=== PATIENT | female | born 1965 | race Caucasian/White ===

== ENCOUNTER → 2017-09-11 | Outpatient (CLI) | payer OTHER ==
[~2017-09-11] MED LIST: DOXY-300 PO
--- NOTE | 2017-09-11 13:53 | Discharge Instructions ---
Discharge Instructions Procedure Procedure Date: September 11, 2017. Reason for visit: Left Calcs; Us Bx R Mass. Discharge Discharge Date: September 11, 2017. Discharge Diagnosis: post right breast ultrasound guided core biopsy and left breast stereotactic guided core biopsy Instructions Activity Recommendations: Additional Limitations (see below) Return to School/Work: no limitations Recommended Home Diet: No Limitations Provider Instructions: ACTIVITY RECOMMENDATIONS: * No lifting, pushing, pulling or exercising the affected side for three days. RETURN TO SCHOOL/WORK: * You may return to work/school after the procedure, but do not perform any strenuous activities for 24 to 48 hours. MEDICATIONS: * Tylenol (two 325 mg) every four to six hours if needed for mild pain (if not allergic to Tylenol). DIET: * Resume previous diet. SPECIAL CARE INSTRUCTIONS: * Keep biopsy site dry for 24 hours. May shower after 24 hours, but do not soak (bathe) incision. * May remove Tegaderm (plastic patch) tomorrow AFTER showering. * Leave the steri-strips on for one week. Allow the steri-strips to fall off by themselves. If not off after one week, you may remove them. You may place a Bandaid crosswise over the strips, if desired. * Apply ice 10 minutes on and 10 minutes off as needed. * Wear a bra at bedtime to sleep more comfortably for 2-3 days. * Your referring physician should have the results after approximately 5 to 7 business days. * Call for unusual bleeding, fever, drainage, etc or if you have any questions call [phone] during normal business hours or after hours call Dr Dominguez, . FOLLOW UP VISIT: Follow-up with Referring Physician as scheduled. Allergies Coded Allergies: Erythromycin (Verified Allergy, Unknown, ., 12/06/15) Macrolides (Verified Allergy, Unknown, 12/06/15) Penicillins (Verified Allergy, Unknown, 12/06/15) Jhonny Francisco Recommendations: Call your doctor if: * Temperature above 101 degrees * Pain not relieved by pain medicine ordered * There is increased drainage or redness from any incision * You have any unanswered questions or concerns. Your Doctors Instructions noted above were prepared by provider Lissa Dominguez. Patient Signature Section: Patient Instructions Signature Page Mary Ann Baxter Patient (or Guardian) Signature/Date: I have read and understand the instructions given to me by my caregivers. Caregiver/RN/Doctor Signature/Date: The above-named patient and/or guardian has received patient instructions on this date. + Original Patient Signature Page (only) stays with chart. Please make copy for patient.
--- NOTE | 2017-09-11 15:44 | MAMMOGRAPHY REPORT ---
ULTRASOUND GUIDED BIOPSY RIGHT BREAST: 09/11/2017 CLINICAL HISTORY: 10 mm mass with associated calcification in the 12:00 anterior right breast. Patie nt presents for ultrasound-guided core biopsy. During the same appointment a stereotactic guided bio psy was performed in the left upper outer quadrant of a 6 mm cluster of indeterminate microcalcificat ions. COMPARISON: Comparison is made to exams dated: 08/23/2017 mammogram and 08/23/2017 ultrasound - [facility]. PATIENT CONSENT: The procedure, risks and benefits were discussed with the patient and informed conse nt was obtained both verbally and in writing. Specific risks to this procedure include: bleeding, in fection, puncture of adjacent structure, nontarget biopsy, sampling error, pain, metal allergy and me dication reaction. PROCEDURE DESCRIPTION: A time out was performed and the right breast was agreed as the site of biopsy . The skin was prepped and draped in the usual sterile fashion. The solid 10 mm mass in the 12:00 per iareolar right breast was chosen as the target for biopsy. Subcutaneous and intraparenchymal 1% buffe red lidocaine, with and without epinephrine, was administered as local anesthesia. A skin incision wa s made. Through the incision, 4 samples were taken with a 14 gauge Achieve biopsy device. A ribbon s haped metallic marker was placed at the biopsy site. Hemostasis was achieved after manual compression . The patient tolerated the procedure well and there was no immediate complication. The samples were sent to the pathology department in an appropriately labeled container. Postprocedure right CC and ML tomosynthesis images were obtained. A ribbon-shaped biopsy marker clip is identified in the 12:00 anterior right breast within a partially circumscribed and obscured mammo graphic mass containing a loose grouping of punctate calcifications. No significant postbiopsy hemat mohamud identified. IMPRESSION: ULTRASOUND GUIDED BIOPSY 1. Status post ultrasound-guided core biopsy of an indeterminate 10 mm mass with associated calcific ation in the 12:00 periareolar right breast, with ribbon-shaped biopsy marker clip placed at the site . 2. Left breast stereotactic guided biopsy was performed during the same appointment for a 6 mm cluste r of microcalcifications in the upper outer quadrant. Please refer to a separate report for full det ail. The patient will receive notification of the biopsy results from her referring physician. Lissa Dominguez M.D. ay/:09/11/2017 15:01:41 Inpatient Auditor: Becca OLIVER)(Ac), [facility]
--- NOTE | 2017-09-11 15:44 | MAMMOGRAPHY REPORT ---
STEREOTACTIC GUIDED BIOPSY LEFT BREAST: 09/11/2017 CLINICAL HISTORY: Indeterminate 6 mm cluster of microcalcifications in the upper outer posterior left breast. Patient presents for stereotactic guided biopsy. An ultrasound-guided core biopsy was also performed in the right breast 12:00 axis for an indeterminate 10 mm mass with associated calcificati on. COMPARISON: Comparison is made to exams dated: 08/23/2017 mammogram and 08/23/2017 ultrasound - [facility]. PATIENT CONSENT: After explaining the risks, benefits and alternatives of the procedure to the patien t, informed consent was obtained both verbally and in writing. Specific risks include: Bleeding, inf ection, puncture of adjacent structure, pain, nontarget biopsy, sampling error, metal allergy and med ication reaction. PROCEDURE DESCRIPTION: A time-out was performed and the left breast was confirmed as the site of biop sy. The patient was placed prone on the stereotactic biopsy table and the breast was placed in CC fro m above compression. A tomosynthesis waste management specialist view was obtained which demonstrates the calcifications, h owever there are 3 prominent blood vessels associated with the calcifications and therefore positioni ng of the breast was changed to lateralmedial compression. A tomosynthesis waste management specialist view in the latera l plane demonstrates the cluster of calcifications and vessels which are located more distal to the c alcifications, and therefore they are amenable to stereotactic tomosynthesis guided biopsy. The calc ifications were targeted utilizing the coordinates obtained by the computer. The skin was prepped wi Betadine. 1% Lidocaine with and without epinipherine was administered as local anesthesia. A small skin incision was made. Through the incision, the needle was inserted to the depth determined by e computer. 5 samples were obtained using a nviteiva 9-gauge vacuum-assisted biopsy device. The sp ecimen radiograph demonstrated several sales support representative microcalcifications, therefore, a metallic key er was placed at the biopsy site. There was no immediate complication. Hemostasis was achieved after several minutes of manual compression. The samples were sent to pathology in an appropriately labele d container. Postprocedure CC and ML tomosynthesis views of the left breast were obtained. There is a new dumbbe ll-shaped biopsy marker clip and no significant hematoma in the upper outer middle to posterior left breast, at the site of the biopsied cluster of calcifications. IMPRESSION: STEREOTACTIC GUIDED BIOPSY 1. Status post left breast stereotactic guided biopsy of a 6 mm cluster of calcifications in the upp er outer posterior breast, with dumbbell-shaped biopsy marker placed at the site. 2. A right breast ultrasound-guided core biopsy was performed during the same appointment, for a 10 m m solid mass with associated calcification. Please refer to a separate report for full detail. The patient will receive notification of the biopsy results from her referring physician. Lissa Dominguez M.D. ay/:09/11/2017 15:04:39 Piling Setter: Becca VALLEJO(Tamara)(M), [facility]
--- NOTE | 2017-09-11 15:47 | MAMMOGRAPHY REPORT ---
BILATERAL DIGITAL DIAGNOSTIC MAMMOGRAM TOMOSYNTHESIS: 09/11/2017 CLINICAL HISTORY: Status post ultrasound-guided core biopsy of a solid mass in the 12:00 periareolar right breast, and clustered microcalcifications in the upper outer posterior left breast. Please refer to the reports from right breast ultrasound guided core biopsy and left breast stereotac tic guided biopsy performed at the same time for full detail. IMPRESSION: POST PROCEDURE IMAGING FOR MARKER PLACEMENT Please refer to the reports from right breast ultrasound guided core biopsy and left breast stereotac tic guided biopsy performed at the same time for full detail. Approximately 10% of breast cancers are not detected with mammography. A negative mammographic report should not delay biopsy if a clinically suggestive mass is present. Lissa Dominguez M.D. ay/:09/11/2017 13:55:47 Occupational Health Nursing Director: Becca OLIVER)(Ac), [facility] BI-RADS Code: Post Procedure Imaging For Marker Placement
== END | disposition home or self-care (01) ==
LOC: C.MAMM 12:40
DX: R92.0 Mammographic microcalcification found on diagnostic imaging of breast (principal); N60.22 Fibroadenosis of left breast